=== PATIENT | male | born 1985 | race Caucasian/White ===

== ENCOUNTER 2022-05-10 15:50 | Emergency (ER) | payer MEDICAID ==
[~2022-05-10] VITALS: Ht 177.8 cm; Wt 77.1 kg
[2022-05-10] MEDS ORDERED: NALO1DIS2 IM (16:12)
[2022-05-10] MEDS ORDERED: SULF1TAB47 PO (16:12)
--- NOTE | 2022-05-10 16:29 | NUR ---
PT SEEN AND EVALUATED BY DR MOLINA. DISCHARGE INSTRUCTIONS RENDERED BY .
[2022-05-10 16:30] VITALS: BP 127/96
== END 2022-05-10 16:30 | disposition home or self-care (01) ==
LOC: ER 15:50
DX: L98.9 Disorder of the skin and subcutaneous tissue, unspecified (principal); L08.9 Local infection of the skin and subcutaneous tissue, unspecified; Z59.00 Homelessness unspecified; F15.90 Other stimulant use, unspecified, uncomplicated
CPT/HCPCS: A4663

== ENCOUNTER → 2022-05-10 | Emergency (ER) | payer SELFPAY ==
[~2022-05-10] MED LIST: NALO1DIS2 IM; SULF1TAB47 PO
== END | disposition left against medical advice (07) ==
LOC: ER 15:01
DX: Z53.21 Procedure and treatment not carried out due to patient leaving prior to being seen by health care provider (principal)